=== PATIENT | female | born 1975 | race Hispanic/Latino ===

== ENCOUNTER → 2018-10-23 | Day surgery (SDC) | payer OTHER ==
[~2018-10-23] MED LIST: BUPIVACAINE HCL 0.5% INJ 30 ML VIAL INJ ONE; CEFAZOLIN SOD 1 GM/NS 50ML 100 ML IV ONE; DEXAMETHASONE SOD PHOS INJ 4 MG/ML VIAL ONE; FENTANYL CITRATE/PF 100MCG/2 ML INJ ONE; KETOROLAC TROMETHAMINE 30 MG/ML VIAL ONE; LEVOTHYROXINE50 MCG PO; LIDOCAINE HCL 2% LOCAL INJ 5 ML SDV VIAL INJ ONE; LO ESTRIN FE PO; MIDAZOLAM HCL 2 MG/2 ML VIAL ONE; NEOSTIGMINE 1 MG/ML 10ML VIAL ONE; OMEPRAZOLE20 M1; ONDANSETRON HCL INJ 2MG/ML 2ML 2 MG/ML VIAL ONE; PROPOFOL IV EMULSION 10 MG/ML 20 ML VIAL ONE; SERTRALINE HCL100 MG PO; SEVOFLURANE INHAL SOLN 250 ML PEN BTL ONE
--- OUTSIDE RECORDS SUMMARY | 2018-10-23 08:48 | XMS REPORT ---
Author Author Admin, [place] Organization [facility] Address Unknown Phone Unavailable Allergies, Adverse Reactions, Alerts Allergy Name Reaction Description Start Date Severity Status Provider No Known Allergies Nerissa Fuller MA Conditions or Problems Problem Name Problem Code Onset Date Status Entry Date Provider Comment Standard Description Annotate Annual pharmacologist exam V72.3 Active Natan Angelo MD Special investigations and examinations - Gynecological examination Candidiasis, vulvovaginal, recurrent 112.1 Active Natan Angelo MD Candidiasis of vulva and vagina Cervix, screening for malignant neoplasm V76.2 Active Natan Angelo MD Screening for malignant neoplasms of the cervix Mammogram not high risk screening V76.12 Active Natan Angelo MD Other screening mammogram Medication List Medication Instructions Start Date Stop Date Generic Name NDC Status Provider Patient Instruction LO LOESTRIN FE 1 MG-10 MCG / 10 MCG ORAL TABLET 1 pill daily po NORETHIN-ETH ESTRAD-FE BIPHAS 60126935851 Active Natan Angelo MD Active DIFLUCAN 150 MG ORAL TABLET 1 pill monthly DIFLUCAN 150 MG ORAL TABLET 266352 FLUCONAZOLE Inactive LO LOESTRIN FE 1 MG-10 MCG / 10 MCG ORAL TABLET 1 pill daily LO LOESTRIN FE 1 MG-10 MCG / 10 MCG ORAL TABLET NORETHIN-ETH ESTRAD-FE BIPHAS Inactive LO LOESTRIN FE 1 MG-10 MCG / 10 MCG ORAL TABLET 1 pill daily LO LOESTRIN FE 1 MG-10 MCG / 10 MCG ORAL TABLET NORETHIN-ETH ESTRAD-FE BIPHAS Inactive DIFLUCAN 150 MG ORAL TABLET 1 pill monthly FLUCONAZOLE [id number] No Longer Active Natan Angelo MD Active LO LOESTRIN FE 1 MG-10 MCG / 10 MCG ORAL TABLET 1 pill daily NORETHIN-ETH ESTRAD-FE BIPHAS [id number] No Longer Active Natan Angelo MD Active LO LOESTRIN FE 1 MG-10 MCG / 10 MCG ORAL TABLET 1 pill daily NORETHIN-ETH ESTRAD-FE BIPHAS [id number] No Longer Active Natan Angelo MD Active Vital Signs Date Name Value Unit Range Description blood pressure, diastolic 77 mm[Hg] BP mendoza blood pressure, systolic 120 mm[Hg] BP sys height E&M 60.25 [in_us] Bdy height pulse rate E&M 84 /min Heart rate respiratory rate E&M 16 /min Resp rate temperature E&M 98.4 [degF] Body temperature weight E&M 163.13 [lb_av] Weight Measured Procedures Code Procedure Name Date Entry Date Standard Description [id number] Est Patient Well Exam (40 - 64 Yrs) - 06609 12:28:08 CDT CPT-27689 New Patient Well Exam (40 - 64 Yrs) - 57638 11:04:06 CDT
[2018-10-23 13:25] VITALS: BP 157/79
--- NOTE | 2018-10-23 14:57 | Operative Report ---
DATE OF PROCEDURE: 10/23/2018 SURGEON: Tanna Shukla DPM PREOPERATIVE DIAGNOSIS: Hallux abductovalgus, left foot. POSTOPERATIVE DIAGNOSIS: Hallux abductovalgus, left foot. PROCEDURE: 1. German bunionectomy, left foot. 2. Use of human allograft to prevent adhesions and nerve entrapment of foot. PATHOLOGY: None. ANESTHESIA: General anesthetic. HEMOSTASIS: Pneumatic ankle tourniquet at 250 mmHg. ESTIMATED BLOOD LOSS: Less than 10 mL. MATERIALS: Two screws 2.0 from [employer], 14 mm in length and a human allograft 2 x 4. COMPLICATIONS: None. CONDITION: Stable. PROCEDURE IN DETAIL: Under mild sedation, the patient was brought to the operating room and placed on the operative table in supine position. Following IV sedation, anesthesia was obtained with general anesthetic. At this point, the left foot was scrubbed, prepped, and draped in the usual aseptic manner. It was then lowered to the table. Attention was then directed to the dorsal aspect of the left foot and after the tourniquet was inflated to 250 mmHg, a linear incision was made overlying the 1st metatarsophalangeal joint. The incision was deepened down to the level of the capsule. An inverted-L capsulotomy was performed. The medial exostosis was then removed. All this was done taking care to retract or cauterize neurovascular structures as necessary. Once the medial exostosis was removed, a lateral release was performed in order to let the system which went to a more anatomical position. The 60 degree osteotomy was performed of the head of the 1st metatarsal in a standard fashion. It was then moved into a more lateral position helping to close the intermetatarsal angles. Two screws were used, 2.0 utilized standard AO fixation to fixate the osteotomy. There was noted to be adequate alignment clinically and with the use of intraoperative fluoroscopy. After the foot was loaded, at this time it was noted that an Charbel osteotomy no longer needed to be performed. The extensor tendon was released at the area of the contracture and there was adequate anatomical alignment. The area was then flushed with copious amount of normal sterile saline solution. The capsule was then closed closing the deepest layer with 2-0 Vicryl and 3-0 Vicryl. The human allograft was then inserted right after the capsule right at the area where the nerve could entrap in order to decrease adhesions. Then, the layer was closed with 4-0 Vicryl and the skin was closed with 4-0 nylon. Clean dressing was applied consisting of Adaptic, 4x4s, Kerlix, and Reggie bandage. The tourniquet was deflated. There was noted to be hyperemic response to all the digits. The patient tolerated procedure and anesthesia well without complications and was transferred to recovery room with vital signs stable and vascular status intact to both feet. The patient will be discharged home when she meets criteria. She was given instructions to be nonweightbearing, to ice and elevate the foot while at rest, follow up with me in the office and to call if any questions, concerns, or new problems arise. SIDNEY Hall/NELIA /[id number]
== END | disposition home or self-care (01) ==
LOC: OR 08:45
PROVIDERS: ATTEND Podiatrist Foot & Ankle Surgery
DX: M20.12 Hallux valgus (acquired), left foot (principal); E03.9 Hypothyroidism, unspecified; K21.9 Gastro-esophageal reflux disease without esophagitis; F32.9 Major depressive disorder, single episode, unspecified; F41.9 Anxiety disorder, unspecified
CPT/HCPCS: 28296; 81025; J0690; J1100; J1885; J2001; J2250; J2405; J2704; J2710; Q4150; 76000; J3010